=== PATIENT | male | born 1970 | race Caucasian/White ===

== ENCOUNTER 2017-05-06 14:53 | Observation (INO) | payer MEDICAID, OTHER ==
[2017-05-06] MEDS ORDERED: NS 1,000 ML IV ONE ×2 (15:11→15:50)
[2017-05-06 15:19] LABS: PLATELET COUNT 216 10^3/uL (150-400)
--- NOTE | 2017-05-06 15:23 | EDPHY ---
H & P Stated Complaint: sent by [facility] for high blood glucose. HPI/ROS: HPI CHIEF COMPLAINT: High blood sugar HISTORY OF PRESENT ILLNESS: Patient is a 47-year-old male who presents emergency room with high blood sugar over 450 at [facility], presents emergency room with 1 month of fatigue, intermittent nausea, dry mouth and urinary frequency. No history of diabetes. No new medications. Denies any chest pain vomiting diarrhea or fever. 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 Denies drugs alcohol tobacco Family History: Noncontributory ROS REVIEW OF SYSTEMS: A comprehensive 10 point review of systems is otherwise negative aside from elements mentioned in the history of present illness. Exam Constitutional appears well nontoxic triage nursing summary reviewed, vital signs reviewed, awake/alert. Eyes normal conjunctivae and sclera, EOMI, PERRLA. HENT normal inspection, atraumatic, moist mucus membranes, no epistaxis, neck supple/ no meningismus, no raccoon eyes. Respiratory clear to auscultation bilaterally, normal breath sounds, no respiratory distress, no wheezing. Cardiovascular rate normal, regular rhythm, no murmur, no edema, distal pulses normal. Gastrointestinal soft, non-tender, no rebound, no guarding, normal bowel sounds, no distension, no pulsatile mass. Genitourinary no CVA tenderness. Musculoskeletal no midline vertebral tenderness, full range of motion, no calf swelling, no tenderness of extremities, no meningismus, good pulses, neurovascularly intact. Skin pink, warm, & dry, no rash, skin atraumatic. Neurologic awake, alert and oriented x 3, AAOx3, moves all 4 extremities equally, motor intact, sensory intact, CN II-XII intact, normal cerebellar, normal vision, normal speech. Psychiatric normal mood/affect. Heme/Lymph/Immune no lymphadenopathy. Differential Diagnosis: Includes but is not limited to in a particular order hyperglycemia, new onset diabetes, DKA, electrolyte disturbance, dehydration Medical Decision Making: Plan for this patient IV establishment IV fluid bolus , check electrolytes, serum glucose, UA and re-evaluate. Re-evaluation: Patient blood sugar noted be above 450. This is new onset diabetes for this patient. No evidence of diabetic ketoacidosis he does not have low bicarb there is no anion gap. Patient be admitted the hospital for new onset diabetes with a blood sugar over 400. 1554: Spoke with Dr. Estrella who agrees to admit. Source: Patient - Personal History Current Tetanus Diphtheria and Acellular Pertussis (TDAP): Yes - Medical/Surgical History Hx Asthma: No Hx Chronic Respiratory Disease: No Hx Diabetes: No Hx Cardiac Disease: No Hx Renal Disease: No Hx Cirrhosis: No Hx Alcoholism: No Hx HIV/AIDS: No Hx Splenectomy or Spleen Trauma: No Other PMH: Depression. Bipolar. - Social History Smoking Status: Never smoked Constitutional: Initial Vital Signs Temperature (C) 36.7 C 05/06/17 14:56 Heart Rate 91 05/06/17 14:56 Respiratory Rate 16 05/06/17 14:56 Blood Pressure 127/88 H 05/06/17 14:56 O2 Sat (%) 94 05/06/17 14:56 O2 Delivery Mode Room Air Allergies/Adverse Reactions: No Known Allergies Allergy (Unverified 01/03/09 12:54) Home Medications: Medication Instructions Recorded Herbals/Supplements -Info Only 1 ea PO DAILY 05/06/17 Melatonin/Pyridoxine [Melatonin 5 1 each PO HS 05/06/17 mg Tablet] Mirtazapine [Remeron] 15 mg PO HS 05/06/17 carBAMazepine [Tegretol] 400 mg PO 08,13,20 05/06/17 clonazePAM [klonoPIN (*)] 0.5 mg PO 0800,1200 05/06/17 clonazePAM [klonoPIN (*)] 1 mg PO HS 05/06/17 lamoTRIgine [Lamictal] 200 mg PO DAILY 05/06/17 Insulin Glargine [Lantus] 10 unit SC HS #1 ml 05/07/17 Lancets 1 each QID #60 each 05/07/17 Syringe and Needle,Insulin,1Ml 1 each QID #60 disp.syrin 05/07/17 [Insulin Syringe] Medical Decision Making - Data Points Laboratory Results: Laboratory Results 05/06/17 15:09 05/06/17 15:09 Medications Given: Discontinued Medications Acetaminophen (Tylenol) 650 mg PO Q4HRS PRN PRN Reason: Pain, Mild/Fever, Can Take PO Stop: 11/02/17 16:55 Last Admin: 05/07/17 09:51 Dose: 650 mg Carbamazepine (Tegretol) 400 mg PO TID@0800,1300,2000 OSIRIS Stop: 11/02/17 19:59 Last Admin: 05/07/17 12:16 Dose: 400 mg Clonazepam (Klonopin) 1 mg PO HS OSIRIS Stop: 11/02/17 20:59 Last Admin: 05/06/17 20:58 Dose: 1 mg Clonazepam (Klonopin) 0.5 mg PO BID@0800,1200 OSIRIS Stop: 11/03/17 07:59 Last Admin: 05/07/17 12:16 Dose: 0.5 mg Sodium Chloride (Ns) 1,000 mls @ 0 mls/hr IV EDNOW ONE; Wide Open PRN Reason: Protocol Stop: 05/06/17 15:12 Last Admin: 05/06/17 15:16 Dose: 1,000 mls Sodium Chloride (Ns) 1,000 mls @ 0 mls/hr IV ONCE ONE PRN Reason: Wide Open Stop: 05/06/17 15:51 Last Admin: 05/06/17 16:42 Dose: 1,000 mls Sodium Chloride (Ns) 1,000 mls @ 150 mls/hr IV CONT OSIRIS Stop: 11/02/17 16:59 Last Admin: 05/07/17 07:25 Dose: 1,000 mls Insulin Glargine (Lantus Syringe) 10 units SC HS OSIRIS Stop: 11/02/17 20:59 Last Admin: 05/06/17 20:57 Dose: 10 units Lamotrigine (Lamictal) 200 mg PO DAILY OSIRIS Stop: 11/03/17 08:59 Last Admin: 05/07/17 08:17 Dose: 200 mg Melatonin (Melatonin) 3 - 6 mg PO HS PRN PRN Reason: Insomnia Stop: 11/02/17 21:50 Last Admin: 05/06/17 22:41 Dose: 6 mg Mirtazapine (Remeron) 15 mg PO HS OSIRIS Stop: 11/02/17 20:59 Last Admin: 05/06/17 20:58 Dose: 15 mg Miscellaneous Medication (Melatonin/Pyridoxine [Melatonin 5 Mg Tablet]) 1 each PO HS OSIRIS Stop: 11/02/17 20:59 Last Admin: 05/06/17 22:10 Dose: Not Given Departure - Departure Disposition: [facility] Acute Clinical Impression: Hyperglycemia Condition: Fair
[2017-05-06] MEDS ORDERED: ACETAMINOPHEN 325 MG TAB PO PRN (16:56)
[2017-05-06] MEDS ORDERED: ONDANSETRON 4 MG/2 ML VIAL IVP PRN (16:56)
[2017-05-06] MEDS ORDERED: ONDANSETRON DISINTEGRATING 4 MG TAB PO PRN (16:56)
--- NOTE | 2017-05-06 17:48 | GHP ---
[f rep st] HISTORY AND PHYSICAL DATE OF ADMISSION: 05/06/2017 HISTORY OF PRESENT ILLNESS: The patient is a pleasant 47-year-old gentleman with a history of bipola r who presents from [facility]. He was there for a refill of blood pressure medicines. He noticed i ncreased thirst and urination, and so they checked a blood sugar, and it was 400. He was referred he re. When I see the patient, he acknowledges 4-5 days of increased thirst. He has had no nausea, no vomiting. He has had no weight loss. No cough. No sputum. REVIEW OF SYSTEMS: Complete 10-point review of systems conducted and negative except as noted in the HPI. PAST MEDICAL HISTORY: Bipolar. ALLERGIES: No known drug allergies. MEDICATIONS: Klonopin, lamotrigine, on carbamazepine, mirtazapine. FAMILY HISTORY: Notable for type 2 diabetes. SOCIAL HISTORY: Occasional alcohol. 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 PHYSICAL EXAM: VITAL SIGNS: Temp 36, blood pressure 127/88, pulse 91, breathing 16 times a minute, 94% on room air. GENERAL: No acute distress. HEENT: Sclerae anicteric. Oropharynx clear. Mucous membranes moist. NECK: Supple without lymphadenopathy or JVD. LUNGS: Clear to auscultation bilat erally. HEART: S1, S2. ABDOMEN: Soft, nontender, nondistended. LOWER EXTREMITIES: Without edema . Calves nontender. SKIN: Without rash. NEUROLOGIC: Nonfocal. LABORATORY DATA: Sodium 135, potassium 4.1, chloride 98, bicarb 21, BUN 19, creatinine 0.8, glucose is 407, calcium is 10. C-peptide and hemoglobin A1c are pending. Also send out is a glutamic acid d ecarboxylase antibody. There is no imaging. I spent 35 minutes in the room discussing with the patient. I discussed the ca se Dr. Robert Badillo. ASSESSMENT/PLAN: A 47-year-old gentleman who presents with new diabetes. 1. Diabetes. The patient has new diabetes. He is a lean male, so I feel like he is at lo w risk for type 2, but he does not have an anion gap to suggest decompensated type 1. He is certainl y candidate for latent autoimmune type 1 diabetes of adulthood, therefore I have sent antibodies, the ' glutamic acid, decarboxylase. For now, I will start him on Lantus without sliding scale. The carter ent understands he will likely be discharged home from the hospital tomorrow with a prescription for insulin, and follow up on his labs. 2. Bipolar. Continue his medicines. 3. Prophylaxis. He is low risk. 4. Disposition. Observation status. /[id number]/MODL
[2017-05-06] MEDS ORDERED: carBAMazepine 200 MG TAB PO SCH (20:00)
[2017-05-06] MEDS: carBAMazepine 200 MG TAB PO SCH (20:58)
[2017-05-06] MEDS ORDERED: MIRTAZAPINE 15 MG TAB PO SCH (21:00)
[2017-05-06] MEDS ORDERED: clonazePAM 1 MG TAB PO SCH (21:00)
[2017-05-06] MEDS ORDERED: NON-FORMULARY NEW DRUG (Mirtazapine [Remeron] 15 MG) PO SCH (21:00)
[2017-05-06] MEDS ORDERED: PYRIDOXINE PO SCH ×2 (21:00)
[2017-05-06] MEDS ORDERED: MELATONIN PO SCH ×2 (21:00)
[2017-05-06] MEDS ORDERED: INSULIN GLARGINE 100 UNITS/ML UNIT SC SCH (21:00)
[2017-05-06] MEDS ORDERED: MELATONIN 3 MG TAB PO PRN (21:51)
[2017-05-06] MEDS: NS 1,000 ML IV SCH (22:42)
[2017-05-07] MEDS: NS 1,000 ML IV SCH (07:25)
[2017-05-07 07:39] VITALS: RESP 16
[2017-05-07] MEDS ORDERED: clonazePAM 1 MG TAB PO SCH (08:00)
[2017-05-07] MEDS: carBAMazepine 200 MG TAB PO SCH ×2 (08:17→12:16)
[2017-05-07] MEDS: clonazePAM 1 MG TAB PO SCH ×2 (08:18→12:16)
[2017-05-07] MEDS ORDERED: lamoTRIgine 100 MG TAB PO SCH (09:00)
[2017-05-07] MEDS ORDERED: Herbals/Supplements -Info Only PO SCH (09:00)
[2017-05-07] MEDS ORDERED: NON-FORMULARY NEW DRUG (Lamotrigine [Lamictal] 200 MG) PO SCH (09:00)
--- NOTE | 2017-05-07 10:31 | HOSPPROG ---
Hospitalist Progress Note Assessment/Plan: Patient is a 47-year-old male with a history of bipolar disorder. He was seen at [facility] yesterday and noted to have increased thirst and increased urination. Multiple labs were sent out. Will have him follow up with an ornamental metal worker helper. * newly diagnosed diabetes. Likely Type I Have asked the nursing staff to give him a glucometer. And teach him how to check his blood sugars Hemoglobin A1c is 12.4 with an average glucose of 309 * bipolar disorder stable * plan DC today with close follow-up with Endocrinology. He has multiple labs pending. I spoke with Dr Fisher, they will see him next week. I glucoses cont to be elevated, he should increase Lantus by 2 units nightly. Subjective: Mormon has no complaints. Feeling well. Objective: Vital Signs Temp Pulse Resp BP Pulse Ox 36.7 C 70 16 124/83 H 94 05/07/17 07:36 05/07/17 07:36 05/07/17 07:36 05/07/17 07:36 05/07/17 07:36 Laboratory Results 05/07/17 05:00 05/06/17 05/07/17 05/08/17 05:59 05:59 05:59 Intake Total 2200 Balance 2200 - Physical Exam Constitutional: no apparent distress, appears nourished, not in pain Eyes: PERRL Ears, Nose, Mouth, Throat: hearing normal Respiratory: no respiratory distress Gastrointestinal: normoactive bowel sounds Skin: warm, normal color Musculoskeletal: full muscle strength Neurologic: AAOx3 Psychiatric: interacting appropriately ICD10 Worksheet Patient Problems: Problems Problem Status Onset Hyperglycemia Acute
--- NOTE | 2017-05-07 11:06 | ASMTCMCOM ---
CM Note CM Note Notes: Spoke w/RN, pt will dc independent and follow up with an director digital sales when medically stable. CM available for any changes. DC Plan: Independent Date Signed: 05/07/2017 11:05 AM Electronically Signed By:Terri Armstrong RN
[2017-05-07 11:10] VITALS: BP 130/89; PULSE 89; TEMP 98; O2SAT 93
--- NOTE | 2017-05-07 16:32 | GDS ---
[f rep st] DISCHARGE SUMMARY DISCHARGE DIAGNOSES: 1. Newly diagnosed diabetes, likely type 1. 2. Bipolar disorder. BRIEF HISTORY: The patient is a 47-year-old with a history of bipolar disorder. He was in [facility] yesterday, noted to have increased thirst and increased urination. It was noted that he had diabet es. Hemoglobin A1c was checked which was 12.4 with an average glucose of 309. He will be discharged home. I have spoken to the certified medication aide team. They will follow up with him early next week. HOSPITAL COURSE: 1. Newly diagnosed diabetes, likely type 1. He has been given a glucometer, instructed on how to ch juan his glucoses. Have asked for a dietitian to see him prior to discharge. Also, reviewed his care with Dr. William. Recommendation is to continue Lantus as we have done and increase by 2 units e very night if his glucose remains above 300. 2. Bipolar disorder. Stable. PENDING LABS: Multiple labs are pending, Dr. William or one of his team members will follow up wi th these. DISCHARGE CONDITION: Stable. Blood pressure is 124/83, O2 sats on room air 94%, respiratory rate 16 , pulse is 70, temperature 36.7 Celsius. MEDICATIONS AT DISCHARGE: Please see the EMR. DISCHARGE INSTRUCTIONS: 1. To monitor his glucoses before meals and at bedtime. 2. To start with Lantus 10 units subcu at night, and increase by 2 units as long as his blood sugars remain greater than 300. /[id number]/MODL
== END 2017-05-07 14:13 | disposition home or self-care (01) ==
LOC: F3E 17:17
PROVIDERS: ADMIT Internal Medicine; ATTEND Student in an Organized Health Care Education/Training Program
DX: E11.65 Type 2 diabetes mellitus with hyperglycemia (principal); E86.9 Volume depletion, unspecified; F31.9 Bipolar disorder, unspecified; Z83.3 Family history of diabetes mellitus
CPT/HCPCS: G0378 ×2; 82947-QW; 84681-90; 86341-90; J1815